=== PATIENT | female | born 1980 | race Caucasian/White ===

== ENCOUNTER → 2019-02-23 | Outpatient (REF) | payer OTHER | LOC: M SFHCLERA 14:37 | PROVIDERS: ATTEND Physician Assistant | DX: J02.9 Acute pharyngitis, unspecified (principal) ==

== ENCOUNTER → 2019-03-08 | Outpatient (CLI) | payer OTHER | LOC: M SMT 09:40 | PROVIDERS: ATTEND Physician Assistant | DX: E55.9 Vitamin D deficiency, unspecified (principal); D50.9 Iron deficiency anemia, unspecified; Z13.29 Encounter for screening for other suspected endocrine disorder; Z13.220 Encounter for screening for lipoid disorders ==

== ENCOUNTER → 2019-03-10 | Outpatient (CLI) | payer OTHER ==
[2019-03-10 13:54] LABS: BASO % 0.5 % (0.0-1.0); EOS # 0.1 10^3/uL (0.0-0.5); EOS % 1.6 % (0.0-3.0); HEMATOCRIT 43.8 % (36.0-47.0); HEMOGLOBIN 13.9 g/dl (12.0-15.5); LYMPH # 2.3 10^3/uL (1.5-5.0); LYMPH % 31.8 % (24.0-44.0); MEAN CORPUSCULAR HEMOGLOBIN 28.7 pg (27.0-33.0); MEAN CORPUSCULAR HGB CONC 31.7 g/dl (32.0-36.5); MEAN CORPUSCULAR VOLUME 90.3 fl (80.0-96.0); MONO # 0.4 10^3/uL (0.0-0.8); MONO % 5.9 % (0.0-5.0); NEUTROPHILS # 4.4 10^3/uL (1.5-8.5); NEUTROPHILS % 59.8 % (36.0-66.0); PLATELET COUNT, AUTOMATED 298 10^3/uL (150-450); RED BLOOD COUNT 4.85 10^6/uL (4.00-5.40); WHITE BLOOD COUNT 7.4 10^3/uL (4.0-10.0)
[2019-03-10 14:10] LABS: ALBUMIN 4.1 GM/DL (3.2-5.2); ALT/SGPT 29 U/L (12-78); BILIRUBIN,TOTAL 0.5 MG/DL (0.2-1.0); BLOOD UREA NITROGEN 9 MG/DL (7-18); CALCIUM LEVEL 9.6 MG/DL (8.5-10.1); CARBON DIOXIDE LEVEL 30 MEQ/L (21-32); CHLORIDE LEVEL 101 MEQ/L (98-107); CHOLESTEROL LEVEL 243 MG/DL (<200); CREATININE FOR GFR 0.69 MG/DL (0.55-1.30); FERRITIN 29 NG/ML (8-252); FREE T4 0.99 NG/DL (0.76-1.46); GLOMERULAR FILTRATION RATE > 60.0 (>58); GLUCOSE, FASTING 88 MG/DL (70-100); HDL CHOLESTEROL 45 MG/DL (>40); IRON (FE) 66 UG/DL (50-170); LDL CHOLESTEROL 131 MG/DL (<100); NON-HDL-C 198 MG/DL; PERCENT SATURATION 16.5 % (13.2-45.0); POTASSIUM SERUM 4.7 MEQ/L (3.5-5.1); SODIUM LEVEL 137 MEQ/L (136-145); TOTAL 25(OH) VITAMIN D 18.1 NG/ML (30.0-100.0); TOTAL IRON BINDING CAPACITY 399 UG/DL (250-450); TOTAL PROTEIN 7.5 GM/DL (6.4-8.2); TRIGLYCERIDES LEVEL 336 MG/DL (<150)
[2019-03-10 14:33] LABS: HEMOGLOBIN A1c 5.7 %
== END ==
LOC: M SMT 11:03
PROVIDERS: ATTEND Physician Assistant
DX: E55.9 Vitamin D deficiency, unspecified (principal); D50.9 Iron deficiency anemia, unspecified; Z13.29 Encounter for screening for other suspected endocrine disorder

== ENCOUNTER 2019-03-31 13:10 | Emergency (ER) | payer OTHER ==
[~2019-03-31] VITALS: Ht 160 cm; Wt 85.6 kg
[2019-03-31] MEDS ORDERED: ALLE180T42 (13:31)
[2019-03-31] MEDS ORDERED: VITA500045 (13:31)
[2019-03-31 13:54] LABS: BASO % 0.5 % (0.0-1.0); EOS # 0.1 10^3/uL (0.0-0.5); EOS % 1.2 % (0.0-3.0); HEMATOCRIT 44.3 % (36.0-47.0); LYMPH % 26.1 % (24.0-44.0); MEAN CORPUSCULAR HEMOGLOBIN 28.6 pg (27.0-33.0); MEAN CORPUSCULAR HGB CONC 31.6 g/dl (32.0-36.5); MEAN CORPUSCULAR VOLUME 90.4 fl (80.0-96.0); MONO # 0.5 10^3/uL (0.0-0.8); MONO % 6.3 % (0.0-5.0); NEUTROPHILS # 5.1 10^3/uL (1.5-8.5); NEUTROPHILS % 65.5 % (36.0-66.0); PLATELET COUNT, AUTOMATED 283 10^3/uL (150-450); WHITE BLOOD COUNT 7.8 10^3/uL (4.0-10.0)
[2019-03-31] MEDS ORDERED: NS 1,000 ML IV ONE (14:00)
[2019-03-31] MEDS ORDERED: ACETAMINOPHEN 325 MG TAB PO ONE (14:00)
[2019-03-31 14:25] LABS: BLOOD UREA NITROGEN 8 MG/DL (7-18); CALCIUM LEVEL 9.1 MG/DL (8.5-10.1); CARBON DIOXIDE LEVEL 30 MEQ/L (21-32); CHLORIDE LEVEL 106 MEQ/L (98-107); CREATININE FOR GFR 0.68 MG/DL (0.55-1.30); GLOMERULAR FILTRATION RATE > 60.0 (>58); GLUCOSE, FASTING 96 MG/DL (70-100); POTASSIUM SERUM 4.9 MEQ/L (3.5-5.1); SODIUM LEVEL 142 MEQ/L (136-145)
[2019-03-31] MEDS ORDERED: BACT800T5 PO (14:55)
[2019-03-31 15:09] VITALS: BP 117/71
--- NOTE | 2019-03-31 15:09 | REP ---
PELVIC ULTRASOUND: Real-time sonographic evaluation of the pelvis performed utilizing transabdominal and endovaginal technique. The bladder measures 4.6 x 2.1 x 6.9 cm. Uterus measures 8.3 x 5.0 x 7.6 cm. Endometrial thickness is 4 mm. There is a left uterine fibroid, with a peripheral echogenic rim which may represent peripheral calcifications. This measures 3.3 x 2.0 x 1.8 cm. There is a right fibroid with similar appearance 4.2 x 3.7 x 4.3 cm. I see no adnexal mass or free fluid. Ovaries are normal in size and echotexture, right ovary measuring 1.8 x 1.4 x 2.0 cm and left ovary 2.7 x 1.6 x 2.2 cm. There is no evidence of ovarian torsion with duplex Doppler evaluation. IMPRESSION: Two fibroids seen, one in the left uterus 3.3 cm maximally and in the right uterus 4.3 cm maximally. No adnexal mass, free fluid or torsion. Electronically Signed by Anibal Prabhakar MD 03/31/2019 03:40 P
--- NOTE | 2019-04-05 13:24 | ED PDOC ---
Post-Departure Follow-Up dr merritt and dr hipolito ragsdale faxed formal report of pelvic us for fu Jens Giraldo MD Apr 05, 2019 13:24
== END 2019-03-31 15:10 | disposition home or self-care (01) ==
LOC: M ED 13:10
DX: N93.8 Other specified abnormal uterine and vaginal bleeding (principal); N39.0 Urinary tract infection, site not specified; D25.9 Leiomyoma of uterus, unspecified; Z87.42 Personal history of other diseases of the female genital tract; K90.0 Celiac disease; J45.909 Unspecified asthma, uncomplicated; Z88.0 Allergy status to penicillin; Z91.040 Latex allergy status; Z91.011 Allergy to milk products; Z91.018 Allergy to other foods; Z79.899 Other long term (current) drug therapy

== ENCOUNTER → 2019-04-19 | Outpatient (REF) | payer OTHER ==
[~2019-04-19] MED LIST: ALLE180T42; BACT800T5 PO; VITA500045
== END ==
LOC: M LAB REF 17:05
PROVIDERS: ATTEND Physician Assistant
DX: N30.00 Acute cystitis without hematuria (principal)

== ENCOUNTER → 2019-06-07 | Outpatient (REF) | payer OTHER ==
[~2019-06-07] MED LIST changes: -ALLE180T42; +ALLE180T42 PO; +PROAAER10 INH
[2019-06-07 17:47] LABS: APPEARANCE, URINE CLEAR (CLEAR); BACTERIA, URINE AUTO NEGATIVE (NEGATIVE); BILIRUBIN, URINE AUTO NEGATIVE (NEGATIVE); BLOOD, URINE BLOOD NEGATIVE (NEGATIVE); COLOR, URINE STRAW (YELLOW); GLUCOSE, URINE (UA) AUTO NEGATIVE (NEGATIVE); KETONE, URINE AUTO NEGATIVE (NEGATIVE); LEUKOCYTE ESTERASE, URINE AUTO NEGATIVE (NEGATIVE); NITRITE, URINE AUTO NEGATIVE (NEGATIVE); PROTEIN, URINE AUTO NEGATIVE (NEGATIVE); RBC, URINE AUTO 3 /HPF (0-3); SPECIFIC GRAVITY URINE AUTO 1.014 (1.002-1.035); SQUAMOUS EPITHELIAL CELL UR AU 0 /HPF (0-6); UROBILINOGEN, URINE AUTO 0.2 mg/dL (0.0-2.0); WBC, URINE AUTO 0 /HPF (0-3)
== END ==
LOC: M LAB REF 16:22
PROVIDERS: ATTEND Obstetrics & Gynecology
DX: Q52.5 Fusion of labia (principal)

== ENCOUNTER → 2019-06-09 | Outpatient (REF) | payer OTHER ==
[~2019-06-09] MED LIST changes: +SIME180C PO
== END ==
LOC: M LAB REF 13:30
PROVIDERS: ATTEND Radiology Diagnostic Radiology
DX: N63.0 Unspecified lump in unspecified breast (principal)

== ENCOUNTER 2019-06-10 08:08 | Day surgery (SDC) | payer OTHER ==
[~2019-06-10] VITALS: Ht 157.5 cm; Wt 85.3 kg
[2019-06-10] VITALS (7 sets, daily range): BP systolic 104–127; BP diastolic 58–65
[~2019-06-10 08:08] MED LIST changes: -SIME180C PO
[2019-06-10] MEDS ORDERED: fentaNYL 250 MCG/5 ML INJECTION (J3010) As Ordered ONE (08:25)
[2019-06-10] MEDS ORDERED: propofoL 200 MG/20 ML VIAL As Ordered ONE (08:26)
[2019-06-10] MEDS ORDERED: MIDAZOLAM INJ 2 MG/2 ML VIAL (J2250) As Ordered ONE ×2 (08:26→12:41)
[2019-06-10] MEDS ORDERED: dexameTHASONE 4 MG/ML 1ML VIAL (J1100) As Ordered ONE (08:26)
[2019-06-10] MEDS ORDERED: LIDOCAINE 2% INJ 100 MG/5 ML SDV (FOR ANES.) As Ordered ONE (08:26)
[2019-06-10] MEDS ORDERED: ROCURONIUM BROMIDE 50 MG/5 ML VIAL As Ordered ONE ×2 (08:26→11:27)
[2019-06-10] MEDS ORDERED: ONDANSETRON 4MG/2ML VIAL (J2405) As Ordered ONE (08:26)
[2019-06-10 08:45] LABS: HEMOGLOBIN 13.5 g/dl (12.0-15.5); MEAN CORPUSCULAR HEMOGLOBIN 27.9 pg (27.0-33.0); MEAN CORPUSCULAR HGB CONC 31.4 g/dl (32.0-36.5); MEAN CORPUSCULAR VOLUME 88.8 fl (80.0-96.0); PLATELET COUNT, AUTOMATED 261 10^3/uL (150-450); RED BLOOD COUNT 4.84 10^6/uL (4.00-5.40); WHITE BLOOD COUNT 8.9 10^3/uL (4.0-10.0)
[2019-06-10] MEDS ORDERED: SIME180C PO (08:47)
[2019-06-10] MEDS ORDERED: LR 1,000 ML IV SCH ×2 (09:00→12:00)
[2019-06-10] MEDS ORDERED: ceFAZolin SOD 2 GM in IV 1 EA IV ONE (09:00)
[2019-06-10] MEDS ORDERED: METOCLOPRAMIDE INJ 10MG/2ML VIAL (J2765) As Ordered ONE (10:15)
[2019-06-10] MEDS ORDERED: ACETAMINOPHEN 1000MG 100ML IV BTL (OFIRMEV) (J0131 PER 10MG) As Ordered ONE (10:23)
[2019-06-10] MEDS ORDERED: SUGAMMADEX SODIUM 500 MG/5 ML VIAL (BRIDION) As Ordered ONE (10:24)
[2019-06-10] MEDS: fentaNYL 100 MCG/2 ML INJECTION (J3010) IV PRN ×4 (11:50→12:05)
[2019-06-10] MEDS ORDERED: fentaNYL 100 MCG/2 ML INJECTION (J3010) As Ordered ONE (11:50)
[2019-06-10] MEDS ORDERED: MORPHINE 1MG/ML IN 0.9% NACL 100ML IV BAG As Ordered ONE (11:54)
[2019-06-10] MEDS ORDERED: PROMETHAZINE INJ 25 MG/ML VIAL (J2550) IV ONE ×2 (12:00→14:00)
[2019-06-10] MEDS ORDERED: ONDANSETRON 4MG/2ML VIAL (J2405) IV PRN (12:00)
[2019-06-10] MEDS: oxyCODONE 5MG TAB PO PRN ×2 (12:03→12:33)
[2019-06-10] MEDS ORDERED: KETOROLAC 30 MG/ML VIAL (J1885) As Ordered ONE (12:15)
[2019-06-10] MEDS ORDERED: EPIDURAL/PCA KEYS XX PRN (12:15)
[2019-06-10] MEDS ORDERED: ALBUTEROL 90 MCG/ACT 8GM HFA INHALER INH PRN (12:15)
[2019-06-10] MEDS ORDERED: NALOXONE INJ 0.4 MG/1 ML VIAL (J2310) IV PRN (12:15)
[2019-06-10] MEDS ORDERED: MORPHINE 1MG/ML IN 0.9% NACL 100ML IV BAG IV PRN (12:15)
[2019-06-10] MEDS ORDERED: IBUPROFEN 600 MG TAB PO PRN (12:15)
[2019-06-10] MEDS ORDERED: NALBUPHINE HCL 10 MG/ML AMP (J2300) IV PRN (12:15)
[2019-06-10] MEDS ORDERED: diphenhydrAMINE INJ 50MG/ML VIAL (J1200) IV PRN (12:15)
[2019-06-10] MEDS ORDERED: MORPHINE 4 MG/ML 1ML VIAL/SYRINGE (J2270) As Ordered ONE (12:15)
[2019-06-10] MEDS: MIDAZOLAM INJ 2 MG/2 ML VIAL (J2250) IV SCH ×2 (12:41→12:46)
[2019-06-10] MEDS ORDERED: KETOROLAC 30 MG/ML VIAL (J1885) IV ONE (12:45)
[2019-06-10] MEDS ORDERED: MORPHINE 4 MG/ML 1ML VIAL/SYRINGE (J2270) IV ONE (12:45)
--- NOTE | 2019-06-10 13:01 | RO ---
DATE OF PROCEDURE: 06/09/2019 PREOPERATIVE DIAGNOSIS: Pain, bleeding and fibroids. POSTOPERATIVE DIAGNOSIS: Pain, bleeding and fibroids. PROCEDURE: Total vaginal hysterectomy with bilateral salpingectomy. The patient retained her ovaries at her request. SURGEON: Dr. Anne Marie Genao FRAMEWORK DEVELOPER: None. ANESTHESIA: General endotracheal anesthesia. DESCRIPTION OF PROCEDURE: Barbara was brought to the operating room where sufficient general endotracheal anesthesia was induced and she was prepped, draped and positioned in the usual sterile fashion. With the bladder emptied, weighted speculum and the anterior Drew placed and a single tooth tenacula then placed on the anterior and posterior aspects of the cervix, which was somewhat mobile as expected based on the preop exam. I then made a circumferential incision around the base of the cervix using the scalpel and then bluntly dissected to isolate the cardinal ligaments which were bilaterally clamped, transected, and ligated using the NuñezHerman clamps, which was used throughout this portion of the case and #0 Vicryl suture, which was used throughout the case. The uterosacral ligaments were then clamped, transected and ligated and marked for later reattachment, which of course they were resecured at the end of the case. We then dissected anteriorly to enter the peritoneum there as well and once we had entered the peritoneum anteriorly and posteriorly we gradually worked along the lateral aspect of the uterus, clamping, transecting and ligating the uterine vasculature until the uterus was brought down past the mid portion, at which point, due to the fibroids that were present, it was a little too wide to get good access to either angle for the complete removal, so we went ahead and bivalved the uterus, cutting it up the middle from the cervix with care not to injure any other organs. Then we replaced the right side of the uterus so that we could bring the left side down, which gave us access to the left cornu and we could complete the dissection through the round ligament and the utero-ovarian ligament, and the fallopian tube pedicle which we marked for later re-exploration. Then delivered the left half of the uterus with some attached fibroids and turned our attention to the right half. I went ahead and flipped that uterus over because there was another fibroid in that portion limiting access and we wanted to make sure that we left the ovary behind. We went ahead and dissected off the fallopian tube pedicle on the right side, delivered that, and then dissected down the right utero-ovarian suspensory ligament, placing that ovary back into the abdominal cavity and then continued the dissection along the lateral aspects of the remaining right half of the uterus until it too could be delivered. At which point, we reevaluated all the pedicles. We had good hemostasis. As already noted, we had the removal of the entire uterus with of course the cervix as part of the uterus and the fibroids as part of the uterus and the right fallopian tube. We went back to that left side pedicle and we were able to bring down the fimbria on the left side and deliver that fallopian tube as well. Again, using the Leyt clamp, the Ramirez clamp and the #0 Vicryl suture for the ligation. We left of course both ovaries as the patient had desired. We reevaluated the pedicles. There was good hemostasis. There was some midline posterior laxity at the apex. We went ahead and did a small H there, working vertically on the suturing, just to resecure that. Then resecured the uterosacrals. Then closed the cuff with angle stitches of #0 Vicryl in a running locked closed stitch of #0 Vicryl for cuff closure. The procedure was then Estimated blood loss for the procedure was about 60 mL. Fluid replacement was crystalloid. Complications: None. Condition and Disposition: Barbara tolerated the procedure well and was recovering in the recovery room in good condition.
[2019-06-10 13:15] LABS: HEMATOCRIT 38.6 % (36.0-47.0); HEMOGLOBIN 12.3 g/dl (12.0-15.5); MEAN CORPUSCULAR HEMOGLOBIN 28.1 pg (27.0-33.0); MEAN CORPUSCULAR HGB CONC 31.9 g/dl (32.0-36.5); MEAN CORPUSCULAR VOLUME 88.3 fl (80.0-96.0); PLATELET COUNT, AUTOMATED 227 10^3/uL (150-450); RED BLOOD COUNT 4.37 10^6/uL (4.00-5.40); WHITE BLOOD COUNT 11.1 10^3/uL (4.0-10.0)
[2019-06-10] MEDS ORDERED: GABAPENTIN 100 MG CAP PO ONE (14:00)
[2019-06-10] MEDS: LR 1,000 ML IV SCH ×2 (15:00→23:03)
[2019-06-10] MEDS ORDERED: HYDROmorphone 2 MG TAB PO ONE (15:00)
[2019-06-10] MEDS ORDERED: FEXOFENADINE 60 MG TAB PO SCH (21:00)
[2019-06-11 02:00] VITALS: BP 112/58
[2019-06-11 06:00] VITALS: BP 97/65
[2019-06-11] MEDS: LR 1,000 ML IV SCH ×2 (06:15→12:00)
[2019-06-11] MEDS: NORCO, ANEXSIA 5/325MG TABLET (HYDROcodone/ACETAMINOPHEN) PO PRN ×3 (07:54→17:42)
[2019-06-11 10:00] VITALS: BP 117/70
[2019-06-11 14:00] VITALS: BP 120/70
== END 2019-06-11 18:10 | disposition home or self-care (01) ==
LOC: M SDC 08:08 → M MS5PR 16:36 → M SDC 06-11 18:10
PROVIDERS: ATTEND Obstetrics & Gynecology
DX: R10.2 Pelvic and perineal pain (principal); D25.2 Subserosal leiomyoma of uterus; N92.6 Irregular menstruation, unspecified; G43.909 Migraine, unspecified, not intractable, without status migrainosus; Z79.899 Other long term (current) drug therapy; Z91.040 Latex allergy status; Z88.0 Allergy status to penicillin; Z91.018 Allergy to other foods; K90.0 Celiac disease; E73.9 Lactose intolerance, unspecified; K90.41 Non-celiac gluten sensitivity
CPT/HCPCS: 36415; 58262; 81025; 85027; 86850; 86900; 86901; 88307; J0131; J0690; J1100; J1885; J2250; J2270; J2405; J2765; J3010

== ENCOUNTER → 2019-06-18 | Outpatient (REF) | payer OTHER ==
[~2019-06-18] MED LIST changes: +SIME180C PO
== END ==
LOC: M LAB REF 15:06
PROVIDERS: ATTEND Physician Assistant
DX: R35.0 Frequency of micturition (principal)

== ENCOUNTER → 2019-10-28 | Outpatient (REF) | payer OTHER | LOC: M LAB REF 16:55 | PROVIDERS: ATTEND Physician Assistant | DX: R10.32 Left lower quadrant pain (principal) ==

== ENCOUNTER → 2020-06-13 | Outpatient (CLI) | payer OTHER ==
[2020-06-13 15:35] LABS: BASO # 0.1 10^3/uL (0.0-0.2); BASO % 0.7 % (0.0-1.0); EOS # 0.1 10^3/uL (0.0-0.5); EOS % 1.4 % (0.0-3.0); HEMATOCRIT 43.7 % (36.0-47.0); LYMPH # 2.2 10^3/uL (1.5-5.0); LYMPH % 30.7 % (24.0-44.0); MEAN CORPUSCULAR HEMOGLOBIN 28.7 pg (27.0-33.0); MEAN CORPUSCULAR VOLUME 89.5 fl (80.0-96.0); MONO # 0.5 10^3/uL (0.0-0.8); MONO % 6.5 % (0.0-5.0); NEUTROPHILS # 4.4 10^3/uL (1.5-8.5); NEUTROPHILS % 60.3 % (36.0-66.0); PLATELET COUNT, AUTOMATED 282 10^3/uL (150-450); RED BLOOD COUNT 4.88 10^6/uL (4.00-5.40); WHITE BLOOD COUNT 7.2 10^3/uL (4.0-10.0)
[2020-06-13 15:41] LABS: ALT/SGPT 30 U/L (12-78); BILIRUBIN,TOTAL 0.2 MG/DL (0.2-1.0); BLOOD UREA NITROGEN 12 MG/DL (7-18); CALCIUM LEVEL 9.6 MG/DL (8.5-10.1); CARBON DIOXIDE LEVEL 29 MEQ/L (21-32); CHLORIDE LEVEL 104 MEQ/L (98-107); CHOLESTEROL LEVEL 263 MG/DL (<200); CREATININE FOR GFR 0.68 MG/DL (0.55-1.30); GLOMERULAR FILTRATION RATE > 60.0 (>58); GLUCOSE, FASTING 96 MG/DL (70-100); HDL CHOLESTEROL 58 MG/DL (>40); POTASSIUM SERUM 4.8 MEQ/L (3.5-5.1); SODIUM LEVEL 141 MEQ/L (136-145); TRIGLYCERIDES LEVEL 157 MG/DL (<150)
[2020-06-13 15:42] LABS: ALBUMIN 4.2 GM/DL (3.2-5.2); CHOLESTEROL RISK RATIO 4.534 (<5); FREE T4 0.94 NG/DL (0.76-1.46); LDL CHOLESTEROL 174 MG/DL (<100); NON-HDL-C 205 MG/DL; TOTAL 25(OH) VITAMIN D 27.8 NG/ML (30.0-100.0); TOTAL PROTEIN 7.4 GM/DL (6.4-8.2)
== END ==
LOC: M PLALAB 10:10
PROVIDERS: ATTEND Physician Assistant
DX: Z13.220 Encounter for screening for lipoid disorders (principal); N95.1 Menopausal and female climacteric states

== ENCOUNTER → 2020-06-15 | Outpatient (CLI) | payer OTHER ==
[~2020-06-15] MED LIST changes: +ISOVUE-370 76% 100ML VIAL As Ordered ONE
--- NOTE | 2020-06-16 04:11 | REP ---
INDICATION: PLEUISY COMPARISON: None. TECHNIQUE: Axial contrast enhanced images from the thoracic inlet to the upper abdomen using pulmonary embolus technique with multiplanar re-formations. 75 ml Isovue 370 intravenous contrast material administered without complication. This CT examination was performed using the following dose reduction techniques: Automated exposure control, adjustment of mA and/or kv according to the patient's size, and use of iterative reconstruction technique. FINDINGS: Satisfactory enhancement of the pulmonary vasculature is achieved and no filling defects are identified to suggest pulmonary embolus. Further evaluation of the mediastinum demonstrates normal thoracic aorta, heart and pericardium. The bilateral lung parra are well aerated and clear without consolidation pleural effusion or pneumothorax. Tracheobronchial tree is patent. No nodule or mass lesion is identified. No adenopathy noted. Surrounding musculoskeletal structures intact IMPRESSION: No evidence for pulmonary embolus. No acute mediastinal or pleural parenchymal process. <Electronically signed by Francesco Hall > 06/16/20 [id number]
== END ==
LOC: M RAD 17:58
PROVIDERS: ATTEND Physician Assistant
DX: R09.1 Pleurisy (principal)
CPT/HCPCS: 71275; Q9967

== ENCOUNTER → 2020-09-12 | Outpatient (CLI) | payer OTHER ==
[~2020-09-12] MED LIST changes: -ISOVUE-370 76% 100ML VIAL As Ordered ONE; -SIME180C PO; +SIME180C25 PO
[2020-09-12 15:04] LABS: BASO # 0.1 10^3/uL (0.0-0.2); BASO % 0.7 % (0.0-1.0); EOS # 0.1 10^3/uL (0.0-0.5); EOS % 0.9 % (0.0-3.0); HEMATOCRIT 44.3 % (36.0-47.0); HEMOGLOBIN 14.4 g/dl (12.0-15.5); LYMPH # 2.3 10^3/uL (1.5-5.0); LYMPH % 24.5 % (24.0-44.0); MEAN CORPUSCULAR HGB CONC 32.5 g/dl (32.0-36.5); MEAN CORPUSCULAR VOLUME 89.1 fl (80.0-96.0); MONO # 0.6 10^3/uL (0.0-0.8); NEUTROPHILS # 6.2 10^3/uL (1.5-8.5); NEUTROPHILS % 66.7 % (36.0-66.0); PLATELET COUNT, AUTOMATED 281 10^3/uL (150-450); RED BLOOD COUNT 4.97 10^6/uL (4.00-5.40); WHITE BLOOD COUNT 9.2 10^3/uL (4.0-10.0)
[2020-09-12 16:07] LABS: ALBUMIN 4.3 GM/DL (3.2-5.2); ALT/SGPT 23 U/L (12-78); BILIRUBIN,TOTAL 0.5 MG/DL (0.2-1.0); BLOOD UREA NITROGEN 11 MG/DL (7-18); CALCIUM LEVEL 9.4 MG/DL (8.5-10.1); CARBON DIOXIDE LEVEL 27 MEQ/L (21-32); CHLORIDE LEVEL 104 MEQ/L (98-107); CHOLESTEROL LEVEL 278 MG/DL (<200); CHOLESTEROL RISK RATIO 4.711 (<5); CREATININE FOR GFR 0.65 MG/DL (0.55-1.30); GLOMERULAR FILTRATION RATE > 60.0 (>58); GLUCOSE, FASTING 95 MG/DL (70-100); HDL CHOLESTEROL 59 MG/DL (>40); LDL CHOLESTEROL 188 MG/DL (<100); NON-HDL-C 219 MG/DL; POTASSIUM SERUM 4.3 MEQ/L (3.5-5.1); SODIUM LEVEL 138 MEQ/L (136-145); TOTAL 25(OH) VITAMIN D 24.2 NG/ML (30.0-100.0); TOTAL PROTEIN 7.2 GM/DL (6.4-8.2); TRIGLYCERIDES LEVEL 154 MG/DL (<150)
== END ==
LOC: M PLALAB 13:09
PROVIDERS: ATTEND Physician Assistant
DX: E78.00 Pure hypercholesterolemia, unspecified (principal)